=== PATIENT | female | born 1985 | race African-American/Black ===

== ENCOUNTER 2021-07-20 06:46 | Day surgery (SDC) | payer BC ==
[2021-07-18 13:02] VITALS: BMI 31.7
[2021-07-20] MEDS ORDERED: PROMETHAZINE HCL 25 MG/1 ML VIAL IVPUSH PRN (08:46)
[2021-07-20] MEDS ORDERED: ONDANSETRON 4 MG/2 ML VIAL IVPUSH PRN (08:46)
[2021-07-20] MEDS ORDERED: oxyCODONE HCL 5 MG TABLET PO PRN (08:46)
[2021-07-20] MEDS ORDERED: BUPIVACAINE HCL/PF 2.5 MG/ML - 30 ML VIAL IJ ONE (08:52)
[2021-07-20] MEDS ORDERED: EPINEPHrine 1:1,000 1,000 MCG/ML ML ONE (08:52)
[2021-07-20] MEDS ORDERED: LACTATED RINGERS SOLUTION 1,000 ML IV SCH (09:00)
[2021-07-20] MEDS ORDERED: MIDAZOLAM HCL 2 MG/2 ML SINGLE DOSE VIAL ONE (09:10)
[2021-07-20] MEDS ORDERED: PROPOFOL 20 ML ONE (09:14)
[2021-07-20] MEDS ORDERED: BUPIVACAINE HCL/PF 0.25% (2.5MG/ML) 10 ML VIAL IJ ONE ×2 (09:51→10:06)
[2021-07-20] MEDS ORDERED: ONDANSETRON 4 MG/2 ML VIAL ONE (10:21)
[2021-07-20] MEDS ORDERED: ACETAMINOPHEN INJECTION 100 ML IVPB ONE (10:21)
[2021-07-20] MEDS ORDERED: ACETAMINOPHEN 1000 MG/100 ML BAG IVPB ONE ×2 (10:25→11:49)
[2021-07-20] MEDS ORDERED: oxyCODONE HCL 5 MG TABLET ONE (11:39)
[2021-07-20 12:04] VITALS: BP 131/71; PULSE 91; TEMP 97.6
== END 2021-07-20 12:00 | disposition home or self-care (01) ==
LOC: FASU 06:46
PROVIDERS: ATTEND Orthopaedic Surgery
PROC: 0SBD4ZZ Excision of Left Knee Joint, Percutaneous Endoscopic Approach (ICD-10-PCS; 2021-07-20)
PROC: 0SBD4ZZ Excision of Left Knee Joint, Percutaneous Endoscopic Approach (ICD-10-PCS; principal; 2021-07-20 09:34)
DX: S83.242A Other tear of medial meniscus, current injury, left knee, initial encounter (principal); S83.282A Other tear of lateral meniscus, current injury, left knee, initial encounter; S83.8X2A Sprain of other specified parts of left knee, initial encounter; M65.862 Other synovitis and tenosynovitis, left lower leg; X58.XXXA Exposure to other specified factors, initial encounter; Y93.9 Activity, unspecified; Y92.9 Unspecified place or not applicable
CPT/HCPCS: 81025; 94760